=== PATIENT | female | born 1935 | race Caucasian/White ===

== ENCOUNTER → 2017-05-17 | Outpatient (CLI) | payer MEDICARE ==
[~2017-05-17] MED LIST: AMBIEN 5MG TABLE5 MG PO; AMBIEN5 MG PO; ASPI325T6 PO; ASPIRIN E.C. 8181 MG PO; CEFTIN500 MG PO; CEPHALEXIN500 M1 PO; CINNAMON500 MG PO; CRESTOR10 MG PO; DETROL LA4 PO; FOLIC ACID0.4 MG PO; IRON325 M1 PO; LEVOTHYROXIN0.112 MG PO; LEVOTHYROXIN0.125 MG PO; LEVOXYL0.125 MG PO; LEVOXYL0.15 MG PO; LIPITOR 40MG TA40 MG PO; LOW DOSE ASPIRI81 MG PO; LUNESTA3 MG PO; NEURONTIN300 MG/CAP PO; NORCO 325 MG-51 TAB PO; NORCO 325 MG-7.1 TAB PO; PERCOCET 325 MG1 TA2 PO; PLAVIX 75MG TAB75 MG PO; PREDNISONE20 MG PO; PROTONIX 40MG T40 MG PO; PROTONIX I40 MG/VIAL PO; STOOL SOFTENER100 M2 PO; SYNTHROID0.112 MG/T PO; TOPROL XL50 MG PO; TRILEPTAL 150M150 MG PO; Ultram PO; VITAMIN C500 MG PO; ZITHROMAX 250M250 MG PO; ZOFRAN 4MG T4 MG/TAB PO; ZOLOFT100 MG PO
== END ==
LOC: MC.RAD 04-22 11:20
DX: Z12.31 Encounter for screening mammogram for malignant neoplasm of breast (principal)

== ENCOUNTER 2017-05-25 00:13 | Emergency (ER) | payer MEDICARE ==
[~2017-05-25] VITALS: Ht 162.6 cm; Wt 78.6 kg
[2017-05-25 00:16] VITALS: TEMP 97.9
[2017-05-25] MEDS ORDERED: AMBIEN 5MG TABLE5 MG PO (00:35)
[2017-05-25 02:15] VITALS: BP 189/95; PULSE 72
== END 2017-05-25 02:20 | disposition home or self-care (01) ==
LOC: COL.ER 00:13
DX: S00.03XA Contusion of scalp, initial encounter (principal); I10 Essential (primary) hypertension; I48.91 Unspecified atrial fibrillation; Z95.0 Presence of cardiac pacemaker; Z90.89 Acquired absence of other organs; Z79.02 Long term (current) use of antithrombotics/antiplatelets; W01.198A Fall on same level from slipping, tripping and stumbling with subsequent striking against other object, initial encounter

== ENCOUNTER 2023-12-08 19:07 | Emergency (ER) | payer MEDICARE ==
[~2023-12-08] VITALS: Ht 160 cm; Wt 63.6 kg
[2023-12-08 19:10] VITALS: TEMP 97.9
[2023-12-08] MEDS ORDERED: LORazepam 2 MG/ML 1 ML VIAL IV ONE (19:30)
[2023-12-08 19:43] LABS: BASO # 0.1 K/mm3 (0.0-0.2); BASO % 0.6 % (0.0-2.0); EOS # 0.1 K/mm3 (0.0-0.7); EOS % 1.2 % (0.0-4.0); GRAN # 6.3 K/mm3 (1.4-6.5); HEMATOCRIT 43.8 % (37.0-47.0); HEMOGLOBIN 14.9 g/dl (12.5-16.0); LYMPH # 2.3 K/mm3 (1.2-3.4); LYMPH % 23.7 % (20.0-51.0); MEAN CELL VOLUME 89 fl (80.0-100.0); MEAN CORPUSCULAR HEMOGLOBIN 30 pg (27-31); MEAN CORPUSCULAR HGB CONC 34 g/dl (33.0-37.0); MEAN PLATELET VOLUME 10.9 fl (7.4-10.4); MONO % 10.3 % (1.7-9.3); PLATELET COUNT 212 K/mm3 (130-400); RED BLOOD COUNT 4.95 M/mm3 (4.10-5.30); REDCELL DISTRIBUTION WIDTH-CV 13.2 % (11.5-14.5)
[2023-12-08 20:04] LABS: TROPONIN-I 0.031 ng/mL (0.00-0.033)
[2023-12-08 20:05] LABS: ALBUMIN 4.3 g/dL (3.4-4.8); CALCIUM 9.4 mg/dL (8.4-10.2); CREATININE, serum 0.87 mg/dL (0.57-1.11); TOTAL PROTEIN 6.6 g/dl (6.2-8.1)
[2023-12-08 20:22] LABS: POTASSIUM 3.4 mEq/L (3.5-4.5)
[2023-12-08 20:58] LABS: COLLECTION METHOD CLEAN CATCH
[2023-12-08 21:11] LABS: PH 5.5 (5.0-8.5); URINE APPEARANCE CLOUDY (CLEAR/HAZY); URINE BLOOD 2+ (NEGATIVE); URINE COLOR YELLOW (YELLOW); URINE GLUCOSE NEGATIVE (NEGATIVE); URINE KETONE TRACE (NEGATIVE); URINE NITRATE POSITIVE (NEGATIVE); URINE PROTEIN(semi-quant) TRACE (NEGATIVE); URINE UROBILINOGEN 0.2 E.U/dL (0.2-1.0)
[2023-12-08] MEDS ORDERED: cefTRIAXone 1 G in Water For Injection,Sterile 10 ML IV ONE (21:30)
[2023-12-08] MEDS ORDERED: CEFTIN500 MG PO (21:46)
[2023-12-08 21:50] VITALS: BP 122/74; PULSE 71
== END 2023-12-08 21:50 | disposition home or self-care (01) ==
LOC: COL.ER 19:07
PROVIDERS: Nurse Practitioner Primary Care
DX: N39.0 Urinary tract infection, site not specified (principal); F41.9 Anxiety disorder, unspecified
CPT/HCPCS: J0696; J2060

== ENCOUNTER 2023-12-13 17:18 | Emergency (ER) | payer MEDICARE, MEDICAID ==
[~2023-12-13] VITALS: Ht 160 cm; Wt 63.6 kg
[2023-12-13 17:23] VITALS: TEMP 97.8
[2023-12-13 17:59] LABS: BASO # 0.1 K/mm3 (0.0-0.2); BASO % 0.6 % (0.0-2.0); EOS # 0.1 K/mm3 (0.0-0.7); EOS % 0.8 % (0.0-4.0); GRAN # 6.1 K/mm3 (1.4-6.5); GRAN % 69.5 % (42.2-75.2); HEMATOCRIT 43.9 % (37.0-47.0); HEMOGLOBIN 14.5 g/dl (12.5-16.0); LYMPH # 1.6 K/mm3 (1.2-3.4); LYMPH % 17.7 % (20.0-51.0); MEAN CELL VOLUME 91 fl (80.0-100.0); MEAN CORPUSCULAR HEMOGLOBIN 30 pg (27-31); MEAN CORPUSCULAR HGB CONC 33 g/dl (33.0-37.0); MEAN PLATELET VOLUME 11.3 fl (7.4-10.4); MONO % 11.2 % (1.7-9.3); PLATELET COUNT 190 K/mm3 (130-400); RED BLOOD COUNT 4.84 M/mm3 (4.10-5.30); REDCELL DISTRIBUTION WIDTH-CV 13.1 % (11.5-14.5)
[2023-12-13 18:17] LABS: ALBUMIN 4.1 g/dL (3.4-4.8); CALCIUM 9.4 mg/dL (8.4-10.2); CREATININE, serum 0.83 mg/dL (0.57-1.11); POTASSIUM 3.4 mEq/L (3.5-4.5); TOTAL PROTEIN 6.2 g/dl (6.2-8.1)
[2023-12-13 19:36] LABS: COLLECTION METHOD CLEAN CATCH
[2023-12-13 19:45] LABS: PH 5.5 (5.0-8.5); URINE APPEARANCE CLOUDY (CLEAR/HAZY); URINE BLOOD TRACE (NEGATIVE); URINE COLOR Dark Yellow (YELLOW); URINE GLUCOSE NEGATIVE (NEGATIVE); URINE KETONE 1+ (NEGATIVE); URINE NITRATE NEGATIVE (NEGATIVE); URINE PROTEIN(semi-quant) 2+ (NEGATIVE); URINE UROBILINOGEN 0.2 E.U/dL (0.2-1.0)
[2023-12-13 20:03] LABS: MUCOUS PRESENT (NOT PRESENT)
[2023-12-13 20:19] VITALS: BP 114/78; PULSE 80
--- NOTE | 2023-12-16 14:23 | NUR ---
restuarant crew worker received a consult from 12/12 1899 reporting concerns with pt living alone and having dementia. SW attempted to call pt, but it appears her daughter, Abigail's number is the same [phone] as listed pt's. TESSIE left voicemail. TESSIE called pt's provider, Dr. Love's office and informed them of the likely need for home health and to reach out.
== END 2023-12-13 20:20 | disposition home or self-care (01) ==
LOC: COL.ER 17:18
PROVIDERS: Physician Assistant
DX: R41.0 Disorientation, unspecified (principal); N39.0 Urinary tract infection, site not specified